=== PATIENT | female | born 1940 | race Caucasian/White ===

== ENCOUNTER → 2017-10-11 | Outpatient (CLI) | payer MEDICARE ==
[~2017-10-11] MED LIST: ALBU2.5V2 IH; DORZ10DR10 OP; FLUT9.9S NS; TRAV5DRO OP; UMEC1DIS IH
== END | disposition home or self-care (01) ==
LOC: RAH 10:59
PROVIDERS: ATTEND Internal Medicine
DX: J44.9 Chronic obstructive pulmonary disease, unspecified (principal); J84.17 Other interstitial pulmonary diseases with fibrosis in diseases classified elsewhere
CPT/HCPCS: 71250

== ENCOUNTER 2017-11-28 03:55 | Emergency (ER) | payer MEDICARE ==
[2017-11-28] MEDS ORDERED: IPRATROPIUM/ALBUTEROL SULFATE 3 ML SOLUTION IH ONE (04:21)
[2017-11-28 04:36] LABS: BASOPHILS % (AUTO) 0.6 % (0.0-5.0); EOSINOPHILS % (AUTO) 0.4 % (0.0-8.0); HEMATOCRIT 35.1 % (36-48); LYMPHOCYTES % (AUTO) 18.5 % (21.0-51.0); MEAN CORPUSCULAR HEMOGLOBIN 30.5 pg (27.0-33.0); MEAN CORPUSCULAR HGB CONC 34.6 g/dL (32.0-36.0); MEAN CORPUSCULAR VOLUME 88.1 fL (79-99); MONOCYTES % (AUTO) 8.6 % (3.0-13.0); NEUTROPHILS % (AUTO) 71.9 % (40.0-77.0); PLATELET COUNT (AUTO) 223 K/uL (130-400); RED BLOOD CELL COUNT(AUTO) 3.98 MIL/uL (4.00-5.50); RED CELL DISTRIBUTION WIDTH 13.3 % (11.0-15.5)
[2017-11-28 04:46] LABS: CREATININE 0.9 mg/dL (0.5-1.5); POTASSIUM 4.4 mmol/L (3.5-5.1)
[2017-11-28 04:52] LABS: ALBUMIN 3.4 g/dL (3.5-5.0); BILIRUBIN,TOTAL 0.4 mg/dL (0.2-1.0); TOTAL PROTEIN, SERUM 7.6 g/dL (6.0-8.3)
[2017-11-28] MEDS ORDERED: METHYLPREDNISOLONE SOD SUCC 125MG/2ML VIAL ONE (04:53)
[2017-11-28] MEDS ORDERED: ALBUTEROL SULFATE 0.083% 2.5 MG/3 ML INH IH ONE (05:35)
== END 2017-11-28 06:51 | disposition home or self-care (01) ==
LOC: EDH 03:55
DX: J44.1 Chronic obstructive pulmonary disease with (acute) exacerbation (principal)
CPT/HCPCS: 36415; 71045; 80053; 83605; 85025; 87040 ×2; 87804 ×2; 94640 ×2; 96374; 99285; J2930

== ENCOUNTER → 2020-09-09 | Outpatient (CLI) | payer MEDICARE | END | disposition home or self-care (01) | LOC: SHCH 13:02 | PROVIDERS: ATTEND Internal Medicine | DX: R06.00 Dyspnea, unspecified (principal) | CPT/HCPCS: 93306; 93356 ==

== ENCOUNTER → 2020-09-13 | Outpatient (CLI) | payer MEDICARE ==
[~2020-09-13] MED LIST changes: +REGADENOSON 0.4 MG/5 ML PF SYG IVP SCH
== END | disposition home or self-care (01) ==
LOC: SHCH 08:40
PROVIDERS: ATTEND Internal Medicine
DX: R06.00 Dyspnea, unspecified (principal); R07.89 Other chest pain
CPT/HCPCS: 78452; 93017; 96374; A9500 ×2; J2785

== ENCOUNTER → 2024-10-24 | Outpatient (CLI) | payer MEDICARE ==
[~2024-10-24] MED LIST changes: -ALBU2.5V2 IH; +ASPI-1005 PO; +ATOR40TA69 PO; +BRIM5DRO5 OP; +CLOP-31 PO; +DORZ10DR9 OP; +LATA2.5D14 OP; +METO25TA3 PO; -REGADENOSON 0.4 MG/5 ML PF SYG IVP SCH; -UMEC1DIS IH
== END | disposition home or self-care (01) ==
LOC: SHCH 12:34
PROVIDERS: ATTEND Internal Medicine
DX: I08.3 Combined rheumatic disorders of mitral, aortic and tricuspid valves (principal); I72.8 Aneurysm of other specified arteries; I42.9 Cardiomyopathy, unspecified
CPT/HCPCS: 93308